=== PATIENT | female | born 1965 | race Caucasian/White ===

== ENCOUNTER 2018-09-16 13:42 | Day surgery (SDC) | payer OTHER ==
[~2018-09-16] VITALS: Ht 170.2 cm; Wt 57.2 kg
[~2018-09-16 13:42] MED LIST: Inderal 20 mg T20 MG; LORZONE375 MG
== END 2018-09-16 15:15 | disposition home or self-care (01) ==
LOC: ORSCSDS 13:42
PROVIDERS: Surgery
PROC: 0DJD8ZZ Inspection of Lower Intestinal Tract, Via Natural or Artificial Opening Endoscopic (ICD-10-PCS; principal; 2018-09-16 15:00)
DX: Z12.11 Encounter for screening for malignant neoplasm of colon (principal)
CPT/HCPCS: J7120

== ENCOUNTER → 2020-07-01 | Outpatient (CLI) | payer OTHER | END | disposition home or self-care (01) | LOC: LAB SHORT 11:42 → PLD 11:42 | DX: D22.61 Melanocytic nevi of right upper limb, including shoulder (principal) | CPT/HCPCS: 88305 ==

== ENCOUNTER → 2021-06-30 | Outpatient (CLI) | payer OTHER | LOC: LAB SHORT 11:43 → LAB 11:43 | DX: D48.5 Neoplasm of uncertain behavior of skin (principal); D23.61 Other benign neoplasm of skin of right upper limb, including shoulder; D22.61 Melanocytic nevi of right upper limb, including shoulder; D23.5 Other benign neoplasm of skin of trunk; D22.5 Melanocytic nevi of trunk | CPT/HCPCS: 88305 ==

== ENCOUNTER → 2023-05-01 | Outpatient (CLI) | payer OTHER | LOC: LAB SHORT 18:36 → LAB 18:36 | DX: N39.0 Urinary tract infection, site not specified (principal) | CPT/HCPCS: 87086 ==